=== PATIENT | male | born 1945 | race Caucasian/White ===

== ENCOUNTER 2017-08-24 12:24 | Inpatient (IN) | payer OTHER, MEDICAID ==
[~2017-08-24] VITALS: Ht 170.1 cm; Wt 70.3 kg
--- NOTE | ~2017-08-24 | PR ---
[place], [place] PROGRESS NOTE NAME: JOSE LUIS QUARLES UNIT #: [id number] ROOM: 309 DOCTOR: ALICIA PABON MD BIRTHDATE: [birth year] DOS: 08/29/2017 CHIEF COMPLAINT: "I wanna go home to [place] with my I've been 55 years, that is all I want." SUMMARY OF THE VISIT: The patient was interviewed as he sat eating his breakfast. He continued to talk to me even though he was still eating and having a mouth full of food. He continues to say he wants to be shot or given a medicine to kill himself if he has to return back to [place] or another home. I did try to explore with him the possibility of returning to a different retirement and the idea of anything other than returning home to his of 55 years is alien to him and met with him stating he wants to commit suicide. He is sleeping well and eating well. He is more engaging in conversation with myself and with staff. I seriously do have questions on how lethal he truly is despite multiple verbalizations along this line that he wants to kill himself. MENTAL STATUS: He is alert and oriented with time gaps. Mood does seem to be trending towards euthymia and affect is more appropriate. There are no symptoms of keesha or hypomania. There are no gross psychotic symptoms. Short term memory has gaps. PLAN: I will go ahead and maximize the Namenda dose to its maximum dose of 10 mg b.i.d. to augment the effectiveness of the Exelon patch. We will maintain his current dose of the Fanapt and his antidepressant, engage in individual and christy milieu activity, returning to [facility] or to an alternative placement when psychiatrically stable. ALICIA PABON MD CM:PNTRANS 5 ALICIA PABON MD 08/30/17214 interface
--- NOTE | ~2017-08-24 | WRIGHTHP ---
[place], [place] PATIENT HISTORY AND PHYSICAL EXAM NAME: [facility]IS QUARLES [id number] UNIT #: [id number] ROOM: 309 DOCTOR: ALICIA PABON MD BIRTHDATE: [birth year] DOS: 08/25/2017 CHIEF COMPLAINT: "I'd rather be than to go back to that place. I hated there." HISTORY OF PRESENT ILLNESS: This is a 72-year-old white male who is well known to me from his stay at [facility]. The patient apparently on the day of admission bit the finger of a nurse attempting to take her ring off to swallow in an effort to kill himself. The patient apparently has been increasingly more despondent because he is there and his for 55 years is not with him. He also complains that he does not see his son very much. He repeatedly has made suicidal statements stating that he wishes he were because he cannot stand it there anymore. He has not been eating well, sleeping well. He has had periods of increased crying as well as increased agitation. He is admitted now to rule out organic factors, to engage in individual and christy milieu activity with the ultimate plan to return to the least restrictive environment when psychiatrically stable. PAST MEDICAL HISTORY: Remarkable for GERD, vitamin D deficiency, coronary artery disease, hyperlipidemia and the Seven's disease. MENTAL STATUS: The patient is alert and oriented with time gaps. Mood does seem to be rather depressed. Affect is flat and blunted with constricted range. He endorses positive suicidal thoughts with a plan. There is no keesha or hypomania. He does process slowly and short term memory is exceedingly poor. DIAGNOSIS: Major depression, recurrent with psychotic features. PLAN: I will discontinue his Valium, his Risperdal and Celexa. He is reported to have some dysphagia and it is quite possible that the Risperdal because of its extrapyramidal symptoms is worsening his dysphagia. I will augment the Exelon patch with Namenda 5 mg a day. Utilize Trental as an antidepressant that should also improve his concentration and cognition and utilize Fanapt 1 mg b.i.d. as an antipsychotic that has an extremely low extrapyramidal symptom side effect profile, so it should not exacerbate his swallow issues. Engage him in individual and christy milieu activity, returning to the least restrictive environment. [place], [place] PATIENT HISTORY AND PHYSICAL EXAM NAME: JOSE LUIS QUARLES UNIT #: [id number] ROOM: 309 DOCTOR: ALICIA PABON MD BIRTHDATE: [birth year] ALICIA PABON MD CM:HISPHYS:PATIENT HISTORY AND PHYSICAL EXAMINATION 02 ALICIA PABON MD 08/25/17 1102 interface
--- NOTE | ~2017-08-24 | PR ---
[place], [place] PROGRESS NOTE NAME: JOSE LUIS QUARLES UNIT #: [id number] ROOM: 309 DOCTOR: IDANIA RAZO BIRTHDATE: [birth year] DOS: 09/01/2017 CHIEF COMPLAINT: "Good morning." SUMMARY OF VISIT: The patient was assessed in the dining room where he engaged readily in conversation. He was pleasant, denies any issues with sleep or appetite, only issues per nursing is that he becomes quite agitated around noon or 1 requiring a p.r.n. Ativan. It should be noted his Ativan did fall off. MENTAL STATUS: Alert and oriented to person, place, I do not know about time. Mood is trending towards euthymic. Affect was appropriate. No overt signs of auditory or visual hallucinations, delusions, paranoia, keesha or hypomania. Definitely some memory gaps. PLAN: I restarted his p.r.n. Ativan, but I am also adding a low dose 25 mg Vistaril at noon to see if we can keep the edge off his escalating behaviors then and decrease the use of p.r.n. medications, so we do get ready to discharge him. His medication profile is a little bit more stable. We will continue to try to engage in individual and christy milieu therapy. The plan is to eventually discharge him back to [facility] once he is stable. BRANDON RAZO CNP CM:PNTRANS [id number] IDANIA RAZO 09/03/17 0748 interface
--- NOTE | ~2017-08-24 | PR ---
[place], [place] PROGRESS NOTE NAME: JOSE LUIS QUARLES UNIT #: [id number] ROOM: 309 DOCTOR: ALICIA PABON MD BIRTHDATE: [birth year] DOS: 08/30/2017 CHIEF COMPLAINT: "I need something to sleep, so I don't wake up." SUMMARY OF THE VISIT: The patient was interviewed in the dining area. He did initially engage in relatively normal conversation, reporting that he is not sleeping at night and currently was cold and requested a blanket. He later amended his request for something for sleep, stating that he wanted something to help him sleep and not wake up. I again reiterated that I would help him find something that would help him sleep, but I would never help him with the other request. He did quickly engage in eating his breakfast and does seem to be much more relaxed and much more conversant than he had been prior to his admission and the early stage of his admission. MENTAL STATUS: He is alert and oriented with mild time gaps. Mood does seem to be trending towards euthymia. Affect is much more appropriate. There is no symptom suggestive of hypomania or keesha. There are no auditory or visual hallucinations. No delusions, no paranoia present. Memory has mild gaps, otherwise he is intact. PLAN: I will renew his Ativan in case he requires p.r.n. intervention. He is currently prescribed Fanapt 4 mg twice daily; I will change this to 8 mg at night and discontinue the morning dose. He has been on the Fanapt long enough at this point that his body should have adjusted to any possible hypotensive effects. By loading him with the Fanapt at night, I should aid his sleep. I will also use Rozerem as a nonaddicting sleep agent at bedtime to see if this will help him sleep better. At this point in time, we will continue to engage him in individual and christy milieu activity, look to find ways to help him cope with his chronic illness and discharge then back to [facility] when psychiatrically stable. ALICIA PABON MD CM:PNTRANS [id number] ALICIA PABON MD 08/30/17 2341 interface
--- NOTE | ~2017-08-24 | CON ---
[place], [place] REPORT OF CONSULTATION NAME: JOSE LUIS QUARLES UNIT #: [id number] ROOM: 309 DOCTOR: CECILIA CHEEK ED.D (CECILIO) BIRTHDATE: [birth year] DOS: 08/27/2017 HISTORY OF PRESENT ILLNESS: The patient is a 72-year-old male referred by Dr. Streeter for competency evaluation. At the present time, this patient is on the [facility] Unit at [facility] [place]. States he is and has 1 son. He has most recently been residing at [facility] in [place], [place]. He worked for many years at [employer]. He also served in [employer] for 4 years. The patient's medical history is pertinent for Chester's disease, GERD, vitamin D deficiency, coronary artery disease and major depressive disorder with psychotic features. His medications include Namenda, Exelon, Trental and Fanapt. He denies any substance abuse issues throughout his life. This patient was awake, alert and oriented in all three spheres. He knew he was in [place] with the hospital. He knew the month and the year. He also told me that Joseph Pereyra was the claims vice president. This patient does have some dysphasia and has some difficulty communicating, but overall did fairly well. He states that he was involved in an incident at the halfway and he was sent here because of his behavior and states that he made a mistake and will not do that again. He willingly described exactly what happened when he threatened to swallow his wedding ring in attempt to kill himself. At the present time, he denies any suicidal ideation or plan. Apparently, his has some type of a power of trust and estates attorney, but it is uncertain whether she has a power of trust and estates attorney for healthcare. At the present time, however, the patient is lucid instated states he is willing to stay at the hospital as long as he needs treatment. The concern is that once he is medically stable from psychiatric standpoint where will he be discharged. He states he does not want to go back to the halfway. I suggested they work on discharge planning and if the patient states he will not go anywhere, then I will discuss this with the staff regarding decision making by his . He is clearly not capable of taking care of himself independently. DIAGNOSES 1. Major depressive disorder with psychotic features. 2. Seven's disease. Thank you very much for this consult. CECILIA CHEEK ED.D CM:CONSTR:REPORT OF CONSULTATION 1914 08/28/17 0011 interface
--- NOTE | ~2017-08-24 | PR ---
[place], [place] PROGRESS NOTE NAME: [facility]IS QUARLES [id number] UNIT #: [id number] ROOM: 309 DOCTOR: ALICIA APBON MD BIRTHDATE: [birth year] DOS: 08/31/2017 CHIEF COMPLAINT: "Am I going back to [place] soon. I am ready to leave." SUMMARY OF THE VISIT: The patient was interviewed in his room. He was resting quietly in bed and he engaged readily in conversation. He did not at any time during this conversation, report that he wanted me to give him a pill to end his life or shoot him. He did seem to be more goal oriented and is fixated on returning back to [place]. MENTAL STATUS: He is alert and oriented with significant time gaps. Mood does seem to be improving. Affect is more appropriate. There are no symptoms of hypomania or keesha. There are no overt auditory or visual hallucinations. No delusions, no paranoia. Short term memory has gaps, otherwise he is intact. PLAN: I will maintain his current psychotropic regimen. Given benefits support and monitor, finalize discharge plans. ALICIA PABON MD CM:PNTRANS [phone] 3 ALICIA PABON MD 09/02/17833 interface
--- NOTE | ~2017-08-24 | PR ---
[place], [place] PROGRESS NOTE NAME: JOSE LUIS QUARLES UNIT #: [id number] ROOM: 309 DOCTOR: ALICIA PABON MD BIRTHDATE: [birth year] DOS: 08/28/2017 CHIEF COMPLAINT: "I don't want to get out of bed." SUMMARY OF THE VISIT: The patient was interviewed as he was resting in bed. Nurses report, he had an up and down day yesterday. He was bothered by a female peer that was grossly psychotic and this did get on his nerves and upset him. At times, he was rather isolative and withdrawn and at other times, he did engage readily in group in conversation. He continues to be very down and depressed and is very nihilistic in his thinking. MENTAL STATUS: He is alert and oriented with time gaps. Mood does seem to still be depressed. Affect is flat and blunted with constricted range. There is no hypomania or keesha. There are no overt auditory or visual hallucinations. He does process slowly. His responses at times do not pertain to the questions asked of him. PLAN: At this point in time, I will maintain his Trintellix at 20 mg a day and has Fanapt at 4 mg twice daily. Maintain his Exelon patch at 13.3 mg a day. I will go ahead and increase Namenda from 5 mg b.i.d. to 5 mg in the morning and 10 mg at bedtime with a target of 10 mg twice daily. We will engage in individual and christy milieu activity with the ultimate plan to return to [facility] when stable. ALICIA PABON MD CM:PNTRANS ALICIA PABON MD 08/28/1743 interface
--- NOTE | ~2017-08-24 | PR ---
[place], [place] PROGRESS NOTE NAME: JOSE LUIS QUARLES UNIT #: [id number] ROOM: 309 DOCTOR: ALICIA PABON MD BIRTHDATE: [birth year] DOS: 08/26/2017 CHIEF COMPLAINT: "Just give me a pill to kill myself, that's all I want. Just give me a pill to kill myself." SUMMARY OF THE VISIT: The patient was interviewed in the dining area. He was very much on edge and very much depressed. He continued to chant pretty much "just give me a pill to kill myself." When I repeatedly attempted to engage him in conversation to see if there is anything else we could do to help him, he again reiterated "just give me a pill to kill myself." In treatment team, we discussed ways in which we can try to engage him in therapy including perhaps pastoral counseling; however, the board stacker was up to visit and we did have the board stacker attempt to engage him and he was dismissive towards the board stacker as well. MENTAL STATUS: He is alert and oriented with some time gaps. Mood is depressed with irritable overtones. He is very short and terse and his responses are angry. There is no hypomania or keesha. There are no overt auditory or visual hallucinations. No delusions, no paranoia. Short term memory has gaps. PLAN: I will increase his Trintellix from 10 to 20 mg a day, maximizing its potential benefit. I will increase the Fanapt from 1 mg twice daily to 2 mg twice daily to decrease his agitation and impulsivity. My hope also will be that the Fanapt carries with it less of a risk of parkinsonian symptoms so that his swallow difficulties will be relieved. I will also increase Namenda from 5 mg a day to 5 mg twice a day to augment the effectiveness of the Exelon. Engage in individual and christy milieu activity with the plan then to return to the least restrictive environment when psychiatrically stable. ALICIA PABON MD CM:PNTRANS [id number] ALICIA PABON MD 08/26/17 1215 interface
--- NOTE | ~2017-08-24 | DS ---
[place], [place] DISCHARGE SUMMARY NAME: [facility] QU[facility]LES [id number] UNIT #: [id number] ROOM: 309 DOCTOR: ALICIA PABON MD BIRTHDATE: [birth year] DOS: 09/02/2017 CHIEF COMPLAINT: "I would rather be and go back to that place, I hated it there." HISTORY OF PRESENT ILLNESS: This is a 72-year-old white male who is well known to me from his stay at [facility]. The patient apparently on the day of admission bit the finger of a nurse attempting to take his ring off of him. He was attempting to swallow his own wedding ring in an effort to attempt suicide. He had been complaining that he is missing his for 55 years and wants to be with her. He also complains he does not see his son very much. He is very depressed because of this and is very despondent and has repeatedly says he wants to rather than live like this. residential was concerned that there may be true lethality here, so he was sent down to the [facility] to rule out organic factors to attempt to stabilize on medication if required and to further rule out lethality issues. PAST MEDICAL HISTORY: Remarkable for GERD, vitamin D deficiency, coronary artery disease, hyperlipidemia and Seven's disease. SUMMARY OF HOSPITAL COURSE: The patient was admitted to the unit where his Valium, Risperdal and Celexa were discontinued. He was having some periods of dysphagia and I was concerned that the Risperdal would exacerbate dysphagia. Instead, I utilized Fanapt at a dose of 1 mg twice daily, Instead of the Celexa, Trintellix 10 mg a day was utilized. He maintained on his Exelon patch and Namenda was added at a dose of 5 mg a day. Eventually, the Trintellix was increased to its maximum dose of 20 mg a day. Fanapt was gradually increased to a maximum of 4 mg twice daily and then when he complained of significant sleep disturbance issues, it was changed to 8 mg at night, discontinuing the a.m. dosing. Namenda was maxed out to its maximum dose of 10 mg twice daily augmenting Exelon patch at 13.3 mg a day. Much of his therapy focused on ways, in which he can improve his coping skills and this gradually improved over his stay to the point where he was actually voicing a readiness to leave the hospital and go back to [place]. The patient was discharged back to [place] on 09/02/2017. I will follow him upon his return there. MENTAL STATUS AT DISCHARGE: The patient is alert and oriented to person, place, and only approximate to time. Mood does seem to be euthymic. Affect is more appropriate. There are no symptoms of keesha or hypomania. There are no overt auditory or visual hallucinations. No delusions, no paranoia. Short term memory has gaps. 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 PLAN: All of his scripts have been printed. I will follow him upon his return to [place]. [place], [place] DISCHARGE SUMMARY NAME: JOSE LUIS QUARLES UNIT #: [id number] ROOM: [facility] DOCTOR: ALICIA PABON MD BIRTHDATE: [birth year] ALICIA PABON MD CM:DISCHARG 1 7 ALICIA PABON MD 09/02/17827 interface
--- NOTE | ~2017-08-24 | PR ---
[place], [place] PROGRESS NOTE NAME: JOSE LUIS QUARLES UNIT #: [id number] ROOM: 309 DOCTOR: ALICIA PABON MD BIRTHDATE: [birth year] DOS: 08/27/2017 CHIEF COMPLAINT: "Just give me that pill to kill myself." SUMMARY OF THE VISIT: The patient was interviewed in the dining area and then later in his room. He continues to voice suicidal thoughts and wishes he were , wanted to pill just to be able to end it all. He is upset with his for not being able to take him home and upset that he does not have enough contact with his son anymore and feels that his son has given up on him. I attempted to engage him and explore what might make him happy if he had to stay at a [facility] and I did reiterate that is necessary due to some of his failing health issues. He could not verbalize anything that would make this possible. MENTAL STATUS: He remains alert and oriented with some time gaps. Mood remains overwhelmingly depressed. Affect is flat, blunted and constricted. He does have some impulsivity issues. There is no keesha or hypomania. Memory has gaps. PLAN: I will increase his Fanapt further from 2 mg twice a day to 4 mg twice a day and maintain the Trintellix. We will continue to engage in individual and christy milieu activity with the plan to return to the least restrictive environment when psychiatrically stable. ALICIA PABON MD CM:PNTRANS 232 ALICIA PABON MD 08/27/17 2322 interface
[2017-08-24] MEDS ORDERED: APAP325 MG PO (13:28)
[2017-08-24] MEDS ORDERED: ATIVAN1 MG PO (13:29)
[2017-08-24] MEDS ORDERED: ATIVAN IM (13:30)
[2017-08-24] MEDS ORDERED: RISPERDAL0.5 MG PO (13:31)
[2017-08-24] MEDS ORDERED: XARE20MG PO (13:32)
[2017-08-24] MEDS ORDERED: DIAZEPAM2 MG PO (13:33)
[2017-08-24] MEDS ORDERED: CELEXA20 MG PO (13:33)
[2017-08-24] MEDS ORDERED: ASPIRIN ADULT L81 M1 PO (13:34)
[2017-08-24] MEDS ORDERED: ISOSORBIDE MON120 MG PO (13:35)
[2017-08-24] MEDS ORDERED: VITAMIN D-32000 UNI1 PO (13:36)
[2017-08-24] MEDS ORDERED: ZANTAC 150150 MG PO (13:38)
[2017-08-24] MEDS ORDERED: EXELON1 EAC1 T (13:39)
[2017-08-24] MEDS ORDERED: SENNA-EXTRA17.2 MG PO (13:39)
[2017-08-24] MEDS ORDERED: ZOFRAN ODT4 MG SL (15:52)
[2017-08-24 18:00] VITALS: BP 115/70
--- NOTE | 2017-08-24 18:45 | NUR ---
CALL PLACED TO [phone], SPOKE TO DR. PARADA, MADE AWARE OF NEW ADMISSION AND CONSULT FOR MEDICAL MANAGEMENT. DR. PARADA ACCEPTS CONSULT. 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 PARADA WAS MADE AWARE BY THIS NURSE THAT WE DO NOT CURRENTLY HAVE DOCUMENTATION PROVING THE IS HEALTHCARE POA, THE FACILITY AND FAMILY WERE UNABLE TO PRODUCE THIS DOCUMENTATION PRIOR TO ADMISSION AND PT HAS BEEN ADMITTED UNDER PINK SLIP. DR. PARADA STATES TO ENTER DIET MECHANICAL SOFT/NECTAR THICK UNTIL SPEECH THERAPY CAN ASSESS PT FOR SAFETY WITH REGULAR DIET. PT'S HOME MEDS WERE REVIEWED WITH DR. PARADA VIA TELEPHONE PER HIS REQUEST, DR. PARADA STATES TO CONTINUE XARELTO FOR TONIGHT PT DID NOT RECIEVE DOSE TODAY PER [facility]. DR. PARADA STATES THE REMAINING HOME MEDS WILL BE REVIEWED TOMORROW. ENTIRE CONVERSATION WITNESSED BY 2ND RN RICHARD.
--- NOTE | 2017-08-24 18:52 | NUR ---
JOSE LUIS QUARLES a 72 year old M admitted via wheel chair from the EMERGENCY ROOM as a emergency 72 hr. hold admission. Arrived on unit at 1752. ALLERGIES: NKDA. Vital signs are: 98.0-85-18 115/70. 97% ROOM AIR. The client DID NOT SIGN the following forms DUE TO PINK SLIP: Authorization For The Release of Medical Information, Clothing List, Consent to Voluntary Admission and Hospitalization, Consent and Release Forms/Receipt of Rights, Acknowledgement of Advance Directive Information, Behavioral Health Consent Form, and Informed Consent of Medications. Admitted under the services of Dr. CM [place]. A search was conducted and hazardous articles were removed. Client was oriented to the unit. JACOB FARMER
--- NOTE | 2017-08-24 18:53 | NUR ---
PT IS ALERT AND ORIENTED TO PERSON, APPROXIMATE PLACE AND TIME, AND SITUATION. SOME MILD TIME GAPS NOTED. RESPIRATIONS EASY ON ROOM AIR. MOOD IS DEPRESSED, SAD. AFFECT IS FLAT. SPEECH IS OF MODERATE VOLUME AND RATE, SLURRED AT TIMES. FREQUENT TEETH GRINDING NOTED THROUGHOUT ADMISSION PROCESS. PT DENIES HALLUCINATIONS, NO RESPONSE TO INTERNAL STIMULI NOTED. PT DENIES CURRENT SI/HI. STATES "I WOULD JUST RATHER THAN BE AT THAT [facility] HALFWAY. I'VE BEEN THERE ABOUT 6-8 MONTHS, WHATEVER IT IS, AND I JUST SIT IN THE WHEELCHAIR ALL DAY. I HATE IT THERE. I'D RATHER BE THAN BE THERE ANYMORE. SO TODAY, I TOOK OFF MY [place] BAND AND TRIED TO CHOKE MYSELF WITH IT SO I COULD JUST . IF I RIGHT NOW, I'D HAVE NO REGRETS. I'M READY. MY ONLY REGRET WOULD BE BEING AT THAT HALFWAY THESE LAST 6 MONTHS. MY LIFE HAS BEEN PERFECT UP UNTIL I WENT THERE." PT CALM AND COOPERATIVE WITH ADMISSION ASSESSMENTS. UPON SKIN ASSESSMENT, SCABBED AREA NOTED TO RLE. NO OTHER SKIN ISSUES NOTED. NO DISTRESS. Q15 MIN SAFETY CHECKS AND HIGH FALL PRECAUTIONS INITIATED UPON ADMISSION AND MAINTAINED. USE OF CALL CERVANTES DEMONSTRATED, PT VERBALIZED UNDERSTANDING OF IMPORTANCE OF COMPLIANCE WITH FALL RISK PRECAUTIONS. PT STATES "I DON'T GET MUCH OF A CHANCE TO FALL DOWN ADINA I'M ALWAYS IN A CHAIR." REFER TO [facility] ADMISSION ASSESSMENTS FOR FURTHER DETAILS.
--- NOTE | 2017-08-24 19:49 | NUR ---
PT INCREASING IN AGITATION DUE TO BEING ADMITTED TO THIS FACILITY. PT REMOVED ID ARMBAND AND REFUSES TO WEAR ANOTHER. CONTINUE TO ATTEMPT TO FOSTER THERAPEUTIC RAPPORT WITH THIS PATIENT BY LISTENING TO NEEDS AND PROVDING TIMELY CARE.
[2017-08-24 20:07] VITALS: BP 127/70
--- NOTE | 2017-08-25 00:26 | NUR ---
24HR CHART CHECKS COMPLETE
--- NOTE | 2017-08-25 06:02 | NUR ---
PT SLEPT >8HRS, UNINTERRUPTE. LABILE MOOD NOTED. SHORT TEMPER WHEN STAFF ARE ATTENDING TO OTHER PATIENT NEEDS. PREOCCUPIED WITH DISCHARGE. ENCOURAGED VENTING OF FRUSTRATIONS IN ORDER TO FOSTER THERAPEUTIC RAPPORT. PT SOMEWHAT RECEPTIVE TO INTERVENTION. REFER TO FLOWSHEET FOR ADDITIONAL INFO.
[2017-08-25 06:54] LABS: THYROID STIM HORMONE (HS) 2.07 uIU/ml (0.358-4.75)
[2017-08-25 07:28] LABS: VITAMIN D, 25-HYDROXY 39.9 ng/mL (30-100)
[2017-08-25 07:52] VITALS: BP 128/85
--- NOTE | 2017-08-25 15:16 | NUR ---
Rudy's mood is depressed. On 1:1 interaction with staff today, he reports, "I just made a mistake." Relates that he does not like living in a half-way and wants to return home with his . States, "I may as well be if I have to live there." He is alert to person and does acknowledge that he is in the hospital, however he was unable to state the day. He is however, able to state his birthday date correctly. He has not exhibited any self abusive behavior and has not exhibited any aggression as of this time. Compliant with prescribed medications. Dr. Streeter in to see him with orders received. Incontinent of bowel movement and urine this morning and hygiene measures were provided by milieu staff. He did feed himself with a good appetite. Fall precautions maintained per policy. Assisted Rudy to telephone his and he was able to converse with her. Utilizing wheelchair due to unsteady gait. Refer to [facility] flow sheet for specific monitoring throughout this shift.
[2017-08-25 20:00] VITALS: BP 134/67
--- NOTE | 2017-08-26 01:05 | NUR ---
24 HR chart check completed.
--- NOTE | 2017-08-26 01:56 | NUR ---
PATIENT ORIENTED TO PERSON AND PLACE. MOOD CONTINUES TO BE DEPRESSED. STATED TO STAFF "IF YOU HAVE MEDICINE THAT CAN KILL ME JUST GIVE ME THAT". PATIENT ALSO ATTEMPTED TO HIT SELF IN HEAD WITH HIS HAND. MINIMUM REDIRECTION BY STAFF NEEDED. NO OUTWARD SIGNS OF INJURY. PATIENT PROVIDED WITH EMOTIONAL SUPPORT AND ENCOURAGED TO VENT FRUSTRATIONS IN ORDER TO FOSTER A THERAPEUTIC RAPPORT. PATIENT SOMEWHAT RECEPTIVE TO INTERVENTION. NO NOTED RESPONDING TO INTERNAL STIMULI. MEDICATION COMPLIANT WITHOUT DIFFICULTY. NO PHYSICAL COMPLAINTS VOICED. PATIENT CURRENTLY IN BED WITH EYES CLOSED. RESPIRATIONS EASY AND REGULAR. NO SIGNS OR SYMPTOMS OF DISTRESS NOTED. REFER TO [facility] FLOWSHEET FOR SPECIFIC MONITORING.
--- NOTE | 2017-08-26 05:41 | NUR ---
PATIENT OBSERVED ON Q 15 MIN CHECKS TO HAVE SLEPT THROUGHOUT THE NIGHT WITH NO AWAKENINGS OR SIGNS AND SYMPTOMS OF DISTRESS NOTED.
[2017-08-26 07:59] VITALS: BP 118/73
--- NOTE | 2017-08-26 08:10 | NUR ---
TREATMENT TEAM WAS HELD WITH THE FOLLOWING: DR. PABON, 8TH GRADE TEACHER. RNs, SWs, AT, AND DIRECTOR.
--- NOTE | 2017-08-26 09:00 | NUR ---
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 MADE AWARE HALF-WAY HAD PT ON A REGULAR DIET WITH THIN LIQUIDS DUE TO A WAIVER OF LIABILTY SIGNED BY THE D/T RECOMMENDATIONS OF A [facility] SOFT/NECTAR THICK LIQUID DIET. ALSO MADE AWARE PT HAD BEEN TAKEN OFF OF RISPERDAL BY DR. PABON, DR. PABON STATES RISPERDAL MAY INCREASE DIFFICULTY WITH SWALLOWING AND DR. PABON STATES PT'S DIFFICULTIES WITH SWALLOWING MAY CHANGE IN 2-3 DAYS AFTER RISPERDAL HAS WORKED OUT OF PT'S SYSTEM. SPEECH THERAPIST ATTEMPTED TO ASSESS PT THIS AM BUT PT REFUSED, STATES THEY WILL COME BACK AND ATTEMPT TO REASSESS AT LUNCH TIME.
--- NOTE | 2017-08-26 09:18 | NUR ---
SPEECH PATHOLOGY Evaluation orders received and chart review completed. Assessment was attempted this am. Patient refused all liquid and food presentations offered. Will attempt again at lunchtime. Patient's nurse was informed and verbalized understanding. Thank you for this referral. NICKO DILLON MSCCC-SWITCH BOX INSTALLER
--- NOTE | 2017-08-26 10:40 | NUR ---
DR. PARADA ON UNIT TO SEE PT AT THIS TIME. PT MADE INAPPROPRIATE COMMENTS TO DR. PARADA STATING "I'M DOING SUPER F-CKING DUPER" AND "I F-CKING LOVE IT HERE." PT THEN BEGAN DISROBING IN THE DINING ROOM, THREW HIS SHIRT AND CLIP ALARM ON THE FLOOR. PT ANGRY WITH STAFF, YELLING AND CURSING, STATED "WELL NOW I PISSED MYSELF." PT WAS REMOVED FROM THE DAY ROOM AT THIS TIME, TAKEN TO ROOM BY MILIEU STAFF, INCONTINENCE CARE PROVIDED, CLOTHING CHANGED, PT REMINDED IT IS IN APPROPRIATE TO DISROBE IN THE DAYROOM, PT STATES "I DON'T CARE." PT RETURNED TO GROUP AND IS BEING MONITORED BY STAFF AT THIS TIME.
--- NOTE | 2017-08-26 10:44 | NUR ---
Exercise/Trivia Exercise hopes with circulation,staying active and mobility while trivia helps with memory, concentration,socializing and thinking. Patient did attend exercise portion and followed direction and stayed on task well.Patient was needed and taken out by ABHINAV for short meeting then returned. Patient did not want to participate, started using inappropriate language when Hospialist arrived then removing his shirt.Patient was removed by nurses
--- NOTE | 2017-08-26 12:14 | NUR ---
SPEECH THERAPIST ON UNIT AT THIS TIME, ASSESSED PT WHILE PT WAS EATING LUNCH, STATES HE APPEARS TO BE TOLERATING CURRENT DIET - MECHANICAL SOFT/NECTAR THICK LIQUID - WITHOUT DIFFICULTY, STATES SHE WILL CONTINUE TO FOLLOW PT FOR A FEW DAYS.
--- NOTE | 2017-08-26 12:20 | NUR ---
PT IS ALERT AND ORIENTED TO PERSON, PLACE, TIME AND SITUATION. SOME MILD GAPS IN MEMORY NOTED AT TIMES. RESPIRATIONS EASY ON ROOM AIR. MOOD IS LABILE, DEPRESSED, EASILY AGITATED. AFFECT IS FLAT. SPEECH IS LOUD, COHERENT, VULGAR AT TIMES. PT DENIES HALLUCINATIONS, NO RESPONSE TO INTERNAL STIMULI NOTED. PT CONTINUES TO VOICE WISHES, STATING "I WOULD JUST RATHER BE THAN LIVE HERE OR AT [facility]. PLEASE GIVE ME A PILL TO JUST KILL ME ALREADY." PT HAS VOICED THESE SENTIMENTS TO SEVERAL STAFF THROUGHOUT THE MORNING. PT DENIES HAVING A SUICIDAL PLAN AT THIS TIME. PT DENIES HI. NO PARANOIA/DELUSIONS NOTED. MEDICATION COMPLIANT WITHOUT DIFFICULTY. PT IS UTILIZING WHEELCHAIR D/T UNSTEADY GAIT, HIGH FALL RISK PRECAUTIONS MAINTAINED, REVIEWED WITH PT, PT NON COMPLIANT AT TIMES, REMOVING CLIP ALARM, HOWEVER; PT HAS NOT ATTEMPTED TO GET OUT OF CHAIR UNASSISTED. FREQUENT REMINDERS PROVIDED TO PT REGARDING IMPORTANCE OF COMPLIANCE WITH FALL PRECAUTIONS AND ASKING FOR ASSISTANCE WITH TRANSERS AND TOLIETING. PT VERBALIZED UNDERSTANDING. PT IS INCONTINENT OF BOWEL AND BLADDER, HYGIENE CARE HAS BEEN PROVIDED BY STAFF. PT DISPLAYS GOOD APPETITE WITH ADEQUATE FLUID INTAKE, TOLERATING MECH SOFT/ NECTAR THICK LIQUIDS WITHOUT DIFFICULTY. NO DISTRESS NOTED. Q15 MIN SAFETY CHECKS MAINTAINED, REFER TO [facility] FLOWSHEETS FOR SPECIFIC MONITORING.
--- NOTE | 2017-08-26 12:40 | NUR ---
SWS faxed updated information so the SW at facility can update the "change of condition" form for the PASRR. left vm for and DIl to attempt to track down poa for HC.
--- NOTE | 2017-08-26 12:46 | NUR ---
Spoke with pt. , Leonila to attempt to get the poa part for the record. Leonila states that the locomotive engineer is out of town and will be back Saturday. Leonila will talk with him to see if he can fax the HC to the unit.
--- NOTE | 2017-08-26 14:26 | NUR ---
Patient not available for Occupational Therapy evaluation as he was in group therapy session. OTR will attempt at a later time. Thank you for this referral. Racquel Verdin OTR/cynthia
--- NOTE | 2017-08-26 14:30 | NUR ---
PHYSICAL THERAPY PAtient at group at this time. Thak you for this referral. Kim Nicole,PT
--- NOTE | 2017-08-26 14:32 | NUR ---
SPEECH PATHOLOGY Evaluation completed as per orders. Patient was observed during lunchtime meal. Patient tolerated solid food and thin liquid during assessment with no coughing or choking. Occasional residue was observed which he cleared independently. Recommend he remain on present diet at this time. Recommend short term follow up for 1-2 visits to ensure safe tolerance of diet as he was reportedly recommended thick liquids at the residential that he came from. His nurse stated that a waiver had been signed by his spouse so that he could receive thin liquids as per his request. Patient's nurse was educted on results and lee. and verbalized understanding. Refer to report in [facility] for further information. Thank you for this referral. NICKO DILLON MSCCC-BEATER DUMPER
--- NOTE | 2017-08-26 15:15 | NUR ---
Rec'd phone call from Magdalena at [facility]. [place], she rec'd the updated info. and updated the PASRR on her end.
--- NOTE | 2017-08-26 18:36 | NUR ---
SHIFT CHART CHECK COMPLETED.
[2017-08-26 19:51] VITALS: BP 129/74
--- NOTE | 2017-08-26 22:54 | NUR ---
PATIENT ALERT AND ORIENTED X3. MOOD DEPRESSED. DURING 1:1 PATIENT DENIED SUICIDAL IDEATIONS, STATED "I DONT FEEL LIKE THAT, I JUST MISS MY , WE HAVE BEEN FOR 55 YEARS". EMOTIONAL SUPPORT PROVIDED. PATIENT ALSO INFORMED THAT IF THOUGHTS ARISE TO HARM SELF TO NOTIFY STAFF, PATIENT CONTRACTED FOR SAFETY. DENIES HALLUCINATIONS, NO NOTED RESPONDING TO INTERNAL STIMULI. MEDICATION COMPLIANT WITH OUT DIFFICULTY. NO PHYSICAL COMPLAINTS VOICED. PATIENT CURRENTLY IN BED WITH EYES CLOSED. RESPIRATIONS EASY AND REGULAR, NO SIGNS OR SYMPTOMS OF DISTRESS NOTED. REFER TO [facility] FLOWSHEET FOR SPECIFIC MONITORING.
--- NOTE | 2017-08-27 02:46 | NUR ---
24 HOUR CHART CHECK COMPLETED.
--- NOTE | 2017-08-27 06:19 | NUR ---
PATIENT OBSERVED ON Q 15 MIN CHECKS TO HAVE SLEPT QUIETLY THROUGHOUT THE NIGHT WITH NO AWAKENINGS OR SIGNS AND SYMPTOMS OF DISTRESS NOTED.
--- NOTE | 2017-08-27 07:46 | NUR ---
Fall Craft This helped patient with mobility as well as concentration,thinking socializing and self esteem. Patient did attend group but did not want to participate,patient wanted to watch a movie. Patient is withdrawn and at times refuses to speak when spoken to
[2017-08-27 08:00] VITALS: BP 120/70
--- NOTE | 2017-08-27 09:15 | NUR ---
DR. PARADA ON UNIT TO SEE PT AT THIS TIME.
--- NOTE | 2017-08-27 09:56 | NUR ---
SPEECH PATHOLOGY Patient was seen this am to ensure safety with highest level diet. He was observed consuming nectar thick liquid by cup. Patient took cup independently. Anterior loss was observed. His swallow was timely and no cough or choke was noted. Earlier this am, patient was noted to consume 100% of his breakfast, feeding himself. Recommend he remain on present diet at this time. Patient remains depressed and noncompliant at times. Continue therapy plan short term. NICKO DILLON MSCCC-JAIL MANAGER
--- NOTE | 2017-08-27 11:17 | NUR ---
PHYSICAL THERAPY Pnt in group therapy and unable to participate in his PT evaluation at this time. Will attempt again at a later date. Yenny Paulino, PT
--- NOTE | 2017-08-27 12:55 | NUR ---
PHYSICAL THERAPY Physical Therapy Evaluation completed this date. See eval document for further details. Will begin PT intervention to address impairments of limited hip/knee ROM, decreased functional mobility I, and decreased standing tolerance. Recommend d/c back to [facility] as able[place] [address] based on chart review and PT eval. Yenny Paulino, PT
--- NOTE | 2017-08-27 13:04 | NUR ---
PT IS ALERT AND ORIENTED TO PERSON, PLACE, APPROXIMATE TIME AND SITUATION. MEMORY GAPS NOTED AT TIMES. RESPIRATIONS EASY ON ROOM AIR. MOOD REMAINS LABILE AND DEPRESSED. AFFECT IS FLAT. SPEECH IS COHERENT, GARBLED AT TIMES, PT ABLE TO MAKE NEEDS KNOWN TO STAFF WITHOUT DIFFICULTY. PT DENIES HALLUCINATIONS, NO RESPONSE TO INTERNAL STIMULI NOTED. PT DENIES HOMICIDAL IDEATIONS ALTHOUGH PT CONTINUES TO VOICE SUICIDAL WISHES AND PASSIVE WISHES MAKING STATEMENTS SUCH "JUST GIVE ME A PILL TO KILL ME." PT NOTED TO BE DISROBING IN THE DINING ROOM THIS AM DURING BREAKFAST, UPON INTERNVENTION FROM STAFF PT STATES "I JUST WANT TO KILL MYSELF." PT DENIES SPECIFIC PLAN. PT HAS BEEN MEDICATION COMPLIANT THIS AM WITHOUT DIFFICULTY. PT DEPENDENT ON STAFF FOR ASSISTANCE WITH ALL AREAS OF CARE. TRANSFERS X2 ASSIST. PT HAS BEEN COOPERATIVE WITH CARE THIS SHIFT. DISPLAYS GOOD APPETITE WITH ADEQUATE FLUID INTAKE, TOLERATING MECHANICAL SOFT DIET WITH NECTAR THICK LIQUIDS, SPEECH STATES TO CONTINUE THIS DIET. PT COOPERATIVE WITH PHYSICAL THERAPIST THIS AFTERNOON. NO DISTRESS NOTED. Q15 MIN SAFETY CHECKS AND HIGH FALL RISK PRECAUTIONS MAINTAINED PER POLICY. REFER TO [facility] FLOWSHEETS FOR SPECIFIC MONITORING.
--- NOTE | 2017-08-27 13:19 | NUR ---
Reading/Reminiscing This helps with memory,the thought process, concentration. Patient did attend group as well as participate. After AT read a story from a reminisce magazine patient would tell of his memories from boyhood up to present. Patient really enjoyed this group thanking me for it after group was over
--- NOTE | 2017-08-27 16:51 | NUR ---
DR. CHEEK NOTIFIED OF CONSULT FOR COMPETENCY.
--- NOTE | 2017-08-27 18:56 | NUR ---
DR. CHEEK HERE TO SEE PT AT THIS TIME.
--- NOTE | 2017-08-27 18:57 | NUR ---
SHIFT CHART CHECK COMPLETED.
--- NOTE | 2017-08-27 19:20 | NUR ---
DR CHEEK IN ON REPORT. HE JUST FINISHED SPEAKING WITH CLIENT AND DEEMED HIM COMPETANT
[2017-08-27 20:08] VITALS: BP 149/83
--- NOTE | 2017-08-27 21:09 | NUR ---
medication compliant. up in wheelchair moving self on unit. denies suicial ideations at this time. wanting to go home. P#1--PSYCOSIS I- MEDICATION EDUCATION, COPING TECHNIQUES, KEEP WALKWAYS CLEAR, STAR PROGRAM P- NO FALLS, MEDICATION COMPLIANCE. NO ATTEMPTS AT SUICIDE
--- NOTE | 2017-08-28 02:38 | NUR ---
24 HR chart check completed.
--- NOTE | 2017-08-28 06:17 | NUR ---
SLEPT WELL PAST 11PM. CONTINENT OF URINE AND BOWEL ALL NIGHT
--- NOTE | 2017-08-28 07:53 | NUR ---
Who Am I?/Positive traits Helps with self esteem, thinking,concentration,and socializing Patient be came very agitated because tv was turned off for group. Patient became inappropriate and had to be remove from room. A short time later patient returned but did not want to participate. A few minutes after returning patient asked to join group. Patient then apologized and after group said he enjoyed it and thanked me
[2017-08-28 08:17] VITALS: BP 130/67
--- NOTE | 2017-08-28 09:17 | NUR ---
SPEECH PATHOLOGY Treatment attemted X2 this am. Upon both attempts, patient was in bed sleeping and staff reported that he was refusing to get up to eat. Will attempt at a later time. NICKO DILLON MSCCC-DIRECTOR OF EARLY CHILDHOOD
--- NOTE | 2017-08-28 09:49 | NUR ---
PHYSICAL THERAPY Mr Holder was seen this AM 1:1 for his therapy session. Pt did not want any therapy, said no get away. I said how about if we just stand, NO not today. FREDDIE COHEN DESIZING MACHINE OPERATOR.
--- NOTE | 2017-08-28 10:41 | NUR ---
DR PARADA UP TO SEE PATIENT
--- NOTE | 2017-08-28 10:49 | NUR ---
VERIFIED WITH FOUNDER CEO & PRESIDENT JOSE ANTONIO- ABOUT CONTACTING [facility] [employer] TO SEE IF WE CAN GET A COPY OF MEDICAL POWER OF MECHANICAL COMMISSIONING ENGINEER PAPERS. SOCIAL SERVIES STATED SHE WAS GIVING THE UNTIL NOON ;
--- NOTE | 2017-08-28 10:56 | NUR ---
Treatment Team was held with the following: Dr. Streeter, PRESS OPERATOR APPRENTICE, Birgit Silva, RN, at, and SW. Dr. Streeter would like SW to look for a [facility] support group for PT and family and/or IOP. SW informed Dr. Streeter that insurance usually does not pay for IOP when in [place]. SW to check with to see if supervisor mail carriers had copy of POA HC.
--- NOTE | 2017-08-28 10:59 | NUR ---
24 HR chart check completed.
--- NOTE | 2017-08-28 11:00 | NUR ---
PT IS RESTING IN BED, AROUNSABLE,
--- NOTE | 2017-08-28 12:50 | NUR ---
Exercise/Games Patient did not attend group today. Patient was asleep and i was unable to wake him
--- NOTE | 2017-08-28 13:40 | NUR ---
DORA QUAR[employer] () CALLED AND SAID SHE HAS TO REDUE ALL HER POA PAPERWORK , SHE CONTACTED HER MICROBIOLOGY TECHNICIAN AND SAID WILL TAKE A COUPLE OF DAYS TO GET MEDICAL POA PAPER WORK FILED. WILL LET JAVIER AND SOCIAL WORK AWARE. ALSO SHE WANTED AN UPDATE ON PATIENT. STATIGN SHE IS BRINGING CLOTHING DOWN,
--- NOTE | 2017-08-28 13:44 | NUR ---
SPEECH PATHOLOGY Patient was seen for treatment this pm. Patient was sitting in chair in activity room, alert and cooperative. Patient had already eaten lunch, and it was reported that he consumed 100% of it, including thin liquids, with no overt difficulty. He has reportedly been displaying an excellent appetite. He was given thin liquid to assess tolerance, as he is currently ordered nectar thick liquids. Patient took the liquid by cup independently, and drank entire cup, showing timely swallow, no anterior loss, no cough and no wet vocal quality. Patient has shown safe tolerance for thin liquids on all observed occasions. Recommend soft diet and thin liquids. Continued therapy is not warranted at this time as goals are achieved. Will inform patient's nurse of recommendations. Thank you for this referral. It has been a pleasure taking part in this patient's care. NICKO DILLON MSCCC-CHURCH HISTORY TEACHER
--- NOTE | 2017-08-28 15:01 | NUR ---
Patient not available for OT evalaution as he is attending group therapy session. Thank you for this referral. Racquel Verdin OTR/l
--- NOTE | 2017-08-28 17:18 | NUR ---
.PT IS ALERT TO SELF, AND PLACE, CONSENTED FOR VOLUNTARY STATUS WITH SOCIAL WITH AND THIS NURSE, PT CONSENTED TO HIV, BLOOD WORK, PT ACHKNOWLEDGE AND REPAEATED VOLUNTARY , PT HAS BEEN PLEASANT, GAPS OF CONFUSION, REPEATITIVE FOR HIS , STATED HE RATHER THAN GO BACK [facility], PT HAS BEEN INCONTROL, DENIES ALL PSYCHOSIS, INCONTINENT, EATING ADEQUATELY, DRINKING ADEQUATELY, LARGE FROMED BM, UP IN A WHEELCHAIR, 2 ASSIST. MED COMPLIANT TAKES PILLS WHOLE
--- NOTE | 2017-08-28 18:50 | NUR ---
Elba Demolition Crane Operator from [facility] on Unit to complete update for significant change for PASRR.
--- NOTE | 2017-08-28 18:51 | NUR ---
SW explained to Pt the Voluntary Admission form. Pt stated "I want to stay for treatment". Pt signed Voluntary consent with SW and RN witnessing signature. SW explained other admission forms to Pt and obtained signatures.
[2017-08-28 20:00] VITALS: BP 136/70
--- NOTE | 2017-08-28 20:30 | NUR ---
PT IN [address] YELLING "I WANT MY TO COME & SEE ME NOW. I WANT TO LEAVE". TOOK HIS HOSPITAL GOWN OFF & BEGAN TO DISROBE. IRRITABLEL MEDICATED WITH ATIVAN 1 MG PO @ 2011.
--- NOTE | 2017-08-28 22:06 | NUR ---
EARLIER IN SHIFT CLIENT AGGITATED, DISROBING AND DEMANDING TO GO HOME. SINCE THEN ATIVAN HAS BEEN EFFECTIVE TO CALMING CLIENT. HE IS NO LONGER UNROBING AND RESTING QUIET IN BED. NO REQUESTING BE CALLED TO BRING HIM THINGS. MOVES SELF IN BED WITHOUT DIFFICULTY
--- NOTE | 2017-08-29 03:26 | NUR ---
MOVING SELF IN BED. NO PROBLEMS NOTED. 24 HR chart check completed.
[2017-08-29 06:11] LABS: HEPATITIS B SURFACE AG Negative (Negative); HEPATITIS C VIRUS ANTIBODY <0.1 s/co (0.0-0.9); HIV 1+2 AB + HIV1 P24 AG Non Reactive (Non Reactive)
[2017-08-29 08:13] VITALS: BP 139/77
--- NOTE | 2017-08-29 08:31 | NUR ---
Craft/Being afraid This helps patient with expressing feelings and how to deal with the feeling of being afraid Patient did attend group as well as participated. Patient did need some 1:1 making of craft. Patient would not discuss feelings,especially of being afraid. Encouraged patient to participate in this portion of group but patient staed "NO."
--- NOTE | 2017-08-29 10:41 | NUR ---
PHYSICAL THERAPY Patient presented to therapy in supine in bed. Patient had great difficulty communicating with this GASKET SUPERVISOR. Patient agreed to therapy. Patient transferred supine to sitting at EOB with Mod. A x 1. Patient perforemd sit to stand transfer with Mod. A X 1 and then transferred into bedside chair with Minimal Assistance x 1. Patient was wheeled into hallway in W/C and there patient perforemd manual stretching on hamstrings and calves in seated position 5 x 20 sec. count with all manual stretches. Patient then performed sit to stands x 3 [address] railing with Moderate Assistance x 1 to Maximum A x 1 at times for approx. 10 sec. duration each time. Patient secured with body alarm and then wheeled down to the activity room for breakfast.
--- NOTE | 2017-08-29 11:32 | NUR ---
ON UNIT TO ASSESS PT.
--- NOTE | 2017-08-29 14:29 | NUR ---
PT ALERT TO PERSON AND SOMEWHAT PLACE, KNOWING HE IS IN THE HOSPITAL BUT UNSURE OF WHERE AT TIMES. PT MED COMPLIANT WITHOUT DIFFICULTY. NO HALLUCINATIONS OR DELUSIONS NOTED. WHEN ASKED ABOUT SUICIDAL THOUGHTS, PT DENIES BUT STATES "I'D RATHER THAN GO BACK TO [facility]." PT CONTRACTED FOR SAFETY WITH STAFF, PT STATES " I'M NOT GOING TO DO ANYTHING" PT PLEASANT AND COOPERATIVE WITH STAFF. PT ISOLATIVE TO ROOM AFTER MEALS, REFUSING TO PARTICIPATE IN GROUP. PT UP TO WHEELCHAIR, ABLE TO PROPEL SELF THROUGHOUT THE HALLS. PT CONTINENT OF BOWEL AND BLADDER, WITH EPISODES OF INCONTINENCE NOTED, CARE PROVIDED NEEDED. PLAN IS TO ENCOURAGE PT TO PARTICIPATE IN GROUPS/ACTIVITIES, MONITOR PT BEHAVIORS ON Q15 MIN SAFTEY CHECKS.
--- NOTE | 2017-08-29 14:50 | NUR ---
BLOOD WORK RESULTS FAXED TO [facility] PER THEIR REQUEST.
--- NOTE | 2017-08-29 15:00 | NUR ---
tREATMENT TEAM WAS HELD WITHTHE FOLLOWING PRESENT: DR. Miller, MEDICAL STUDCARIE, SW, RN. pENIDING DISCHARGE FOR SATURDAY.
--- NOTE | 2017-08-29 16:21 | NUR ---
SHIFT CHART CHECK COMPLETED.
--- NOTE | 2017-08-29 16:44 | NUR ---
Occupational Therapy evaluation completed this date [facility] with full eval to follow. Precautions include fall risk, personal alarm, w/c dep, max +2 for sit to stand and for xfers when no bar is available to pull up as patient cannot push self up to standing, moderate complexity level 45621. Recommend OT eval only as PT is addressing standing, balance and xfers. Thank you for this referral. Racquel Verdin OTR/l
--- NOTE | 2017-08-29 17:50 | NUR ---
PT HAD SMALL EMESIS OF UNDIGESTED FOOD. NO S/S OF DISTRESS NOTED. VS [id number].
[2017-08-29 20:13] VITALS: BP 145/66
--- NOTE | 2017-08-29 22:42 | NUR ---
PT YELLING OUT IN BED. STATING "I WISH I COULD JUST , I DON'T WANT TO GO BACK TO THE [facility], I'M READY TO ." PT DENIES CURRENT PLAN, ONLY PASSIVE WISH. ABLE TO CONTRACT FOR SAFETY WITH THIS NURSE. PT REQUESTED A "SLEEPING PILL" BECAUSE OF ANXIETY. PRN ATIVAN ADMINISTERED PO. CONTINUE TO EVALUATE FOR MEDICATION EFFECTIVENESS.
--- NOTE | 2017-08-30 01:43 | NUR ---
PRN ATIVAN HAS BEEN EFFECTIVE IN CALMING PATIENT. HE'S CURRENTLY RESTING QUIETY IN BED WITH EYES CLOSED. CONTINUE TO MONITOR FOR CHANGES IN BEHAVIOR.
--- NOTE | 2017-08-30 03:27 | NUR ---
24HR CHART CHECKS COMPLETE
--- NOTE | 2017-08-30 06:01 | NUR ---
PT SLEPT >7HRS WITH ONE INTERRUPTION.
--- NOTE | 2017-08-30 07:41 | NUR ---
08/29/2017 Morning: Trivia This helps the patient think,concentrate, socialize,self esteem and bring up their spirits. Patient did attend group as well as participated. Patient jumped in answering riddles,& trivia. Patient didnt interact with other patients but patient did "chuckle" over some of the answers thrown out by other patients and the correct answer as well. Patient was appropriate during group
[2017-08-30 07:59] VITALS: BP 127/74
--- NOTE | 2017-08-30 11:31 | NUR ---
Exercise/[place] Both of these activities help with movement,circulation, concentration, self esteem and socialization. Patient did attend group and participated ing exercise with no issues. Patient at the start refused to join in the game of Democracy Engine. Patient said he wanted to watch,but after first player went patient decided to play. Patient joined in encouraging other patients. Patient was appropriate until the made rounds then patient stated x2 that he wanted a pill to kill himself. Patient also became fixated on everyones shoes at athat time asking for shoes for his feet. After left patient continued to play and was appropriate the rest of group
--- NOTE | 2017-08-30 13:06 | NUR ---
PT RESTLESS, AGITATED, DISROBING, YELLING OUT "I JUST WANT TO ". 1:1 GIVEN WITH STAFF, TOILETED AND GIVEN MAGAZINES TO READ, ALL INTERVENTIONS INEFFECTIVE. PT MEDICATED WITH ATIVAN 1 MG PO PRN.
--- NOTE | 2017-08-30 14:20 | NUR ---
PHYSICAL THERAPY Patient presented to therapy with report wanting to and wanting everyone else's shoes. Patient performed ther ex in seated position x 10 reps with AROM. Patient performed sit to stands with 10 sec. standing tolerance at the [place] railing with MOD. A x 1. Patient recieved manual stretching to the aman. LEs including HS and CALVES. Patient was 1:1 with this HOT PIPE GAUGER for 25 minutes total. PAOLA WHITE HOT PIPE GAUGER
--- NOTE | 2017-08-30 15:06 | NUR ---
Reminising This helps patients with memory,concentration,socialization. Patient did attend group but did not participate. Patient was very inappropriate and when i told him he could not be inappropriate he continued. Took Patient out of room. He asked to come back to group but became inappropriate and agitated again. Patient was removed from the room a 2nd time
--- NOTE | 2017-08-30 17:00 | NUR ---
TREATMENT TEAM WAS HELD WITHT HE FOLLOWING PRESENT: DR. PABON, RN, MEDICAL STUDENT, . DR. PABON WILL DISCHARGE PT ON SATURDAY TO GO TO [place].
--- NOTE | 2017-08-30 17:20 | NUR ---
PT ALERT TO PERSON ONLY. PT MED COMPLIANT WITHOUT DIFFICULTY. PT ANGRY/IRRITABLE AT TIMES, YELLING OUT AT STAFF "I JUST WANT TO , LET ME ". PT CONTRACTED FOR SAFETY WITH STAFF, PT BEHAVIORS MONITORED ON Q15 MIN SAFETY CHECKS. PT DISROBING MULTIPLE TIMES, PT REDRESSED WITH MUCH ENCOURAGEMENT. NO HALLUCINATIONS OR DELUSIONS NOTED. PT PROPELS SELF IN WHEELCHAIR AT TIMES. CONTINENT OF BOWEL AND BLADDER, WITH EPISODES OF INCONTINENCE NOTED, CARE PROVIDED NEEDED. PLAN IS TO ENCOURAGE PT TO PARTICIPATE IN GROUPS, ENCOURAGE PT TO VOICE ANY SUICIDAL THOUGHTS, MONITOR PT BEHAVIORS ON Q15 MIN SAFETY CHECKS.
[2017-08-30 20:02] VITALS: BP 116/76
--- NOTE | 2017-08-30 22:04 | NUR ---
PT'S MOOD HAS REMAINED STABLE FROM THE BEGINNING OF THE SHIFT TO THE TIME OF THIS DOCUMENTATION. PERR INTERACTION IS APPROPRIATE WHILE WATCHING TELEVISION. REPORTED HAVING "A WONDERFUL DAY." NURSE ENCOURAGED PT TO VOICE EMOTIONS REGARDING RETURNING TO A [facility]. PT STATES "I'D RATHER BE ." NURSE ENCOURAGED REFRAMING OF THINKING AND PT CONTRACTED FOR SAFETY. PT ACKNOWLEDGED THE COPING MECHANISM, BUT "IT WON'T CHANGE MY MIND." CONTINUE TO BUILD THERAPEUTIC RAPPORT AND MONITOR FOR BEHAVIORAL CHANGES. REFER TO FLOWSHEET FOR ADDITIONAL INFO.
--- NOTE | 2017-08-31 05:44 | NUR ---
24HR CHART CHECKS COMPLETE
--- NOTE | 2017-08-31 06:40 | NUR ---
PT SLEPT >8HRS WITH NO INTERRUPTIONS
[2017-08-31 08:55] VITALS: BP 121/80
--- NOTE | 2017-08-31 11:13 | NUR ---
ON UNIT TO ASSESS PT.
--- NOTE | 2017-08-31 12:43 | NUR ---
PT YELLING OUT AT STAFF "JUST LET ME , GIVE ME A SHOT AND I'LL GO QUIETLY", PT RESTLESS, ANXIOUS, DISROBING, REFUSING TO REDRESS, ATTEMPTING TO STRIKE OUT AT STAFF. PT THREW ICE ON THE FLOOR. 1:1 WITH STAFF GIVEN, EDUCATED PT ON INAPPROPRIATE BEHAVIOR, PLACED IN LOW STIMULATION ENVIRONMENT TO CALM. ALL INTERVENTIONS INEFFECTIVE, PT MEDICATED WITH PO PRN ATIVAN 1 MG. WILL CONTINUE TO MONITOR BEHAVIORS.
--- NOTE | 2017-08-31 13:40 | NUR ---
ATIVAN EFFECTIVE, PT RESTING IN BED WITH EYES CLOSED.
--- NOTE | 2017-08-31 13:51 | NUR ---
PT ALERT TO PERSON, PLACE, KNOWING HE IS IN THE HOSPITAL BUT UNSURE OF WHERE. PT MED COMPLIANT WITHOUT DIFFICULTY. PT MOOD IS ANGRY AND IRRITABLE. PT AGGRESSIVE WITH STAFF, ATTEMPTING TO SWING AT STAFF. NO HALLUCINATIONS OR DELUSIONS NOTED. PT VOICES SUICIDAL THOUGHTS STATING "JUST GIVE ME A SHOT AND I'LL QUIETLY. I'M NOT GOING BACK TO [facility] JUST LET ME ." PT CONTRACTED FOR SAFETY WITH STAFF, PT DENIES A PLAN AT THIS TIME. PT UP TO WHEELCHAIR, WILL PROPEL SELF SHORT DISTANCES AT TIMES. PT IS A 2 ASSIST WITH TRANSFERS. PT CONTINENT OF BOWEL AND BLADDER, EPISODES OF INCONTINENCE NOTED, CARE PROVIDED NEEDED. PT REFUSED TO GET OUT OF BED FOR BREAKFAST AND CONSUMED 100% OF LUNCH. PLAN IS TO ENCOURAGE PT TO PARTICIPATE IN GROUPS/ACTIVITIES, RE-ENFORCE APPROPRIATE BEHAVIORS, ENCOURAGE PT TO VOICE SUICIDAL THOUGHTS, MONITOR PT BEHAVIORS ON Q15 MIN SAFETY CHECKS.
--- NOTE | 2017-08-31 18:20 | NUR ---
PT IN DINING ROOM DISROBING, REFUSING TO REDRESS, YELLING OUT AT STAFF "JUST LET ME , I WANT TO . I'M NOT GOING BACK TO [facility]." PT SWEARING AT STAFF AND PEERS. PT REMOVED FROM DINING AREA AND PLACED IN THE QUIET ROOM WITH THE LIGHTS TURNED DOWN TO CALM. 1:1 WITH STAFF GIVEN. INTERVENTIONS EFFECTIVE AT THIS TIME.
--- NOTE | 2017-08-31 18:36 | NUR ---
1:1 WITH STAFF IN LOW STIMULATION ENVIRONMENT INEFFECTIVE, PT PULLING OUT HIS PENIS AND SWEARING AT STAFF CALLING MILALEXANDRAI AND NURSE FING CS. PT DISRUPTING PEERS, PT PLACED IN BED AT THIS CALM. PT YELLING OUT "I'M BEEN FOR 55 YEARS, I'M NOT GOING BACK TO [facility], JUST KILL ME, GIVE ME A SHOT AND LET ME ." ATTEMPTED TO EDUCATE PT ON PROPER BEHAVIOR, EDUCATION INEFFECTIVE. PT STATED "I DON'T CARE". PT IN BED TO CALM. PT RESTING WITH EYES CLOSED AT THIS TIME.
[2017-08-31 20:00] VITALS: BP 123/65
--- NOTE | 2017-09-01 04:11 | NUR ---
24 HR chart check completed.
--- NOTE | 2017-09-01 06:49 | NUR ---
PT REFUSED HS SNACK AND GROUP BUT COOPERATIVE WITH WIL CARE AND HS MEDICATIONS. AWOKE INCONTINENT OF URINE, PLESANT AND COOPERATIVE WITH ALL ASPECTS OF CARE. NO AGGRESSION OR STATEMENTS OF SUICIDE THIS SHIFT. CALLED AND UPDATED ON PT BEHAVIOR DURING DAYLINGHT AND IMPROVED BEHAVIOR FOR HS. SLEPT 9+HOURS UNINTURRUPTED.
[2017-09-01 08:01] VITALS: BP 145/90
--- NOTE | 2017-09-01 10:55 | NUR ---
ON UNIT TO ASSESS PT.
--- NOTE | 2017-09-01 13:17 | NUR ---
PT IN DINING AREA REQUESTING ASSISTANCE TO STAND. PT UNABLE TO STAND ON OWN, PT STATES "I'VE GOT THIS [facility], I JUST WANT TO ." ALLOWED PT TO VOICE FEELINGS AND FRUSTRATIONS. PT SITTING CALMLY IN THE DINING AREA AT THIS TIME.
--- NOTE | 2017-09-01 13:26 | NUR ---
PT ALERT TO PERSON. PT CAN BE ANGRY/IRRITABLE AT TIMES. PT DISROBING MULTIPLE TMES, REDRESSED WITH MUCH ENCOURAGEMENT. PT MED COMPLIANT WITH MINIMAL DIFFICULTY. NO HALLUCINATIONS OR DELUSIONS NOTED. PT VOICES PASSIVE WISH STATING "JUST LET ME , I WANT TO " PT DENIES PLAN. PT CONTRACTED FOR SAFETY WITH STAFF. PT PROPELS SELF SHORT DISTANCES IN THE WHEELCHAIR AT TIMES. PT CONTINENT OF BOWEL AND BLADDER AT TIMES, INCONTINENT AT TIMES, CARE PROVIDED NEEDED. PT CONSUMED 90% OF BREAKFAST AND 100% OF LUNCH. PLAN IS TO MONITOR PT BEHAVIORS ON Q15 MIN SAFETY CHECKS, ENCOURAGE PT TO VOICE ANY SUICIDAL THOUGHTS TO STAFF, ENCOURAGE PT TO PARTICIPATE IN GROUPS/ACTIVITIES.
[2017-09-01 20:00] VITALS: BP 148/70
--- NOTE | 2017-09-01 21:17 | NUR ---
ISOLATIVE TO ROOM. DECLINED SNACK. MEDICATION COMPLIANT. DRANK A COUPLE GLASSES OF WATER. MOVING SELF IN BED. WILL MONITOR
--- NOTE | 2017-09-02 03:20 | NUR ---
24 HR chart check completed.
--- NOTE | 2017-09-02 03:55 | NUR ---
has rested well. assisted with turning a couple times.
--- NOTE | 2017-09-02 06:32 | NUR ---
CLIENT INCONTINET OF LARGE AMOUNT URINE. EXTREMELY COMBATIVE WITH STAFF USING VULGAR LANGUAGE, SWINGING AT STAFF SAYING JUST SHOOT ME/ UNABLT TO REDIRECT. TOOK 3 STAFF MEMBERS TO GET HIM INTO WHEELCHAIR. TAKEN TO DININGROOM
[2017-09-02 07:48] VITALS: BP 111/53
[2017-09-02] MEDS ORDERED: FANAPT8 MG PO (07:57)
[2017-09-02] MEDS ORDERED: BRIN20TA PO (07:57)
[2017-09-02] MEDS ORDERED: ROZEREM8 MG PO (07:57)
[2017-09-02] MEDS ORDERED: MEMANTINE HCL10 MG PO (07:57)
[2017-09-02] MEDS ORDERED: EXELON13.3 MG/21 T (07:57)
[2017-09-02] MEDS ORDERED: LORAZEPAM1 MG PO (07:57)
[2017-09-02] MEDS ORDERED: HYDROXYZINE PAM25 M1 PO (07:57)
--- NOTE | 2017-09-02 09:39 | NUR ---
CALL PLACED TO HOSPITALIST CELL NUMBER [phone], SPOKE TO DR. CAMPBELL, MADE AWARE OF DISCHARGE FOR TODAY BACK TO NURSING FACILITY.
--- NOTE | 2017-09-02 10:41 | NUR ---
SWS spoke with [facility], they can transport between 2-2:30pm today. SWS also spoke with Sherita at [facility] and she requests pt. information s and medications so that she can get them ready upon his admission back to the facility. SWs let staff on [facility] know of 2-230 d/c time. pt. will be followed by Dr. Ferdinand MD and PCP at facility. SWS notified pt. Leonila who states she will plan to see him tonight around 5 pm at the facility.
--- NOTE | 2017-09-02 10:58 | NUR ---
Exercise/September Fun facts and Trivia Exercise helps with mobility, circulation, concentration which is also helped with trivia as well as memory, thinking and socializing Patient did attend group as well as participate. Patient agitated because he wanted the tv on in the begining. Removed patient and approximately 8-10 minutes later patient came back into room with no issuses. Patient guessed at trivia and talked of dressing up for halloween and his marriage in september. Patient also exercised with the rest of the patients when he returned. Patient was appropriate during the rest of group
--- NOTE | 2017-09-02 13:29 | NUR ---
PT IS ALERT AND ORIENTED TO PERSON, PLACE, TIME AND SITUATION. SOME ST MEMORY GAPS NOTED AT TIMES. RESPIRATIONS EASY ON ROOM AIR. MOOD IS STABLE, AFFECT IS FLAT. SPEECH IS SOFT, SLOW BUT COHERENT, ABLE TO MAKE NEEDS KNOWN WITHOUT DIFFICULTY. PT DENIES HALLUCINATIONS, NO RESPONSE TO INTERNAL STIMULI NOTED. PT DENIES SI/HI. MEDICATION COMPLIANT WITHOUT DIFFICULTY. NO AGGRESSIVE BEHAVIORS THIS DATE. COOPERATIVE WITH STAFF. REQUIRES ASSIST OF STAFF X1 TO COMPLETE ADLS, DISPLAYS GOOD APPETITE WITH ADEQUATE FLUID INTAKE, TOLERATING CURRENT DIET MECH SOFT/THIN LIQUIDS WITHOUT DIFFICULTY. NO DISTRESS NOTED. Q15 MIN SAFETY CHECKS MAINTAINED, REFER TO [facility] FLOWSHEET FOR SPECIFIC MONITORING.
--- NOTE | 2017-09-02 14:06 | NUR ---
PHYSICAL THERAPY Patient presented to therapy with report of no pain and no other complaints. Patient performed sit to stand x 4 with standing tolerance on each sit to stand of 10 - 20 sec each standing tolerance. Patient recieved manual stretching to the aman. LEs HS and calves 3 x 30 sec. each LE. Patient was 1:1 with AUTO TUNE UP MECHANIC for 25 minutes total tx time. PAOLA WHITE AUTO TUNE UP MECHANIC
--- NOTE | 2017-09-02 14:07 | NUR ---
NURSE TO NURSE REPORT GIVEN TO JORGE IN ADMISSIONS AT [facility]. JORGE REQUESTED DISCHARGE SUMMARY BE FAXED, DR. APBON'S DISCHARGE SUMMARY FAXED REQUESTED.
--- NOTE | 2017-09-02 15:17 | NUR ---
PT DISCHARGED [facility]IA [facility] WITH 2 PROJECT SCIENTIST AT THIS TIME BACK TO [facility]. ALL DISCHARGE INSTRUCTIONS WERE REVIEWED WITH PT AND CRISTEAL PATEL AT FACILITY. ALL PERSONAL BELONGINGS WERE SENT WITH THE PT. PT LEFT THE UNIT IN STABLE CONDITION.
--- NOTE | 2017-09-03 07:55 | NUR ---
PHYSICAL THERAPY CO-SIGN I approve of the Phyical Therapy notes written above. KARISHMA PUENTE PT
== END 2017-09-02 15:18 | DRG 885 ==
LOC: 3N 12:24
PROVIDERS: Internal Medicine; ADMIT Psychiatry & Neurology Psychiatry
DX: F33.3 Major depressive disorder, recurrent, severe with psychotic symptoms (principal); G10 Huntington's disease; R45.851 Suicidal ideations; R13.10 Dysphagia, unspecified; D53.9 Nutritional anemia, unspecified; I25.10 Atherosclerotic heart disease of native coronary artery without angina pectoris; E78.5 Hyperlipidemia, unspecified; K21.9 Gastro-esophageal reflux disease without esophagitis; Z79.82 Long term (current) use of aspirin; Z79.899 Other long term (current) drug therapy

== ENCOUNTER 2017-08-24 15:19 | Emergency (ER) | payer OTHER, MEDICAID ==
[~2017-08-24 15:19] MED LIST: APAP325 MG PO; ASPIRIN ADULT L81 M1 PO; ATIVAN IM; ATIVAN1 MG PO; CELEXA20 MG PO; DIAZEPAM2 MG PO; EXELON1 EAC1 T; ISOSORBIDE MON120 MG PO; RISPERDAL0.5 MG PO; SENNA-EXTRA17.2 MG PO; VITAMIN D-32000 UNI1 PO; XARE20MG PO; ZANTAC 150150 MG PO
[2017-08-24] MEDS ORDERED: ZOFRAN ODT4 MG SL (15:52)
[2017-08-24 16:24] LABS: BILIRUBIN NEGATIVE (NEGATIVE); BLOOD NEGATIVE (NEGATIVE); CLARITY SL CLOUDY (CLEAR); COLOR YELLOW (YELLOW); GLUCOSE NEGATIVE (NEGATIVE); KETONE NEGATIVE (NEGATIVE); LEUKO ESTERASE NEGATIVE (NEGATIVE); NITRITE NEGATIVE (NEGATIVE); PH 5.5 (5.0-9.0); SPECIFIC GRAVITY 1.015 (1.005-1.030); UROBILINOGEN 0.2 E.U./dl (0.2-1.0)
[2017-08-24 16:29] LABS: BACTERIA 1+; EPITHELIAL CELLS 0-2; MUCOUS TRACE; RBC 0-2 rbc/hpf (0-2)
[2017-08-24 16:36] LABS: BASO # 0.1 10*3/uL (0.0-0.1); BASO % 1.2 % (0.0-1.0); EOS # 0.2 10*3/uL (0.0-0.4); EOS % 2.9 % (1.0-4.0); HEMATOCRIT 40.2 % (42.0-52.0); HEMOGLOBIN 13.8 g/dl (14.0-18.0); LYMPH # 1.5 10*3/uL (1.3-4.4); LYMPH % 22.5 % (27.0-41.0); MEAN CELL VOLUME 98.5 fl (80.0-94.0); MEAN CORPUSCULAR HGB 33.8 pg (27.0-31.0); MEAN CORPUSCULAR HGB CONC 34.3 g/dl (33.0-37.0); MEAN PLATELET VOLUME 9.6 fl (9.6-12.3); MONO # 0.5 10*3/uL (0.1-1.0); MONO % 7.4 % (3.0-9.0); NEUT # 4.3 10*3/uL (2.3-7.9); NEUT % 65.7 % (47.0-73.0); PLATELET COUNT AUTOMATED 198 10*3/uL (130-400); RED BLOOD COUNT 4.08 10*6/uL (4.50-5.90); RED CELL DISTRI WIDTH 12.5 % (0-14.5); WHITE BLOOD COUNT 6.5 10*3/uL (4.8-10.8)
[2017-08-24 16:51] LABS: ALBUMIN 3.4 gm/dl (3.1-4.5); ALKALINE PHOSPHATASE 82 U/L (45-117); BUN 15 mg/dl (7-24); CHLORIDE 105 mmol/L (98-107); CREATININE 0.75 mg/dL (0.70-1.30); POTASSIUM 4.7 mmol/L (3.5-5.1); SGOT/AST 21 IU/L (3-35); SGPT/ALT 20 U/L (12-78); SODIUM 139 mmol/L (136-145); TOTAL PROTEIN 6.6 gm/dL (6.4-8.2)
== END 2017-08-24 17:59 | disposition home health service (06) ==
LOC: ED 15:19
PROVIDERS: Emergency Medicine
DX: F32.9 Major depressive disorder, single episode, unspecified (principal); R45.851 Suicidal ideations; Z79.899 Other long term (current) drug therapy; Z79.82 Long term (current) use of aspirin